=== PATIENT | female | born 2000 | race Caucasian/White ===

== ENCOUNTER 2023-02-02 12:28 | Emergency (ER) | payer BC ==
[~2023-02-02] VITALS: Ht 170 cm; Wt 104.3 kg
--- NOTE | 2023-02-02 13:31 | ED Neurological Problem ---
General Chief Complaint: Facial Problems Stated Complaint: MIGRAINE | LOSS OF FEELING IN FACE Nursing Triage Note: PT AMB TO TRIAGE WITH C/O MIGRAINE LAST NIGHT THAT MADE THE R SIDE OF HER FACE GO NUMB AND HER MOUTH HARD TO MOVE. PT STATES THE MIGRAINE IS GONE BUT HER FACE STILL FEELS NUMB TODAY Source: patient, family Exam Limitations: no limitations History of Present Illness Date Seen by Provider: Feb 02, 2023 Time Seen by Provider: 12:35 Initial Comments 22-year-old female with past medical history of migraines coming in due to a migraine headache. Started last night, and she noted this morning that the right side of her face felt numb and had difficulty moving. Headache started to improve, and the symptoms also started to improve shortly after that. Denies any trauma to her head, does not take any blood thinners, does not take any medicines daily except for ibuprofen as needed for headache. LMP was a couple weeks ago. Allergies and Home Medications Allergies Coded Allergies: amoxicillin (Verified Allergy, Unknown, 02/02/23) hydrocodone (Verified Allergy, Unknown, 02/02/23) Patient Home Medication List Home Medication List Reviewed: Yes Review of Systems Review of Systems Constitutional: No fever Eyes: No Symptoms Reported Ears, Nose, Mouth, Throat: see HPI Respiratory: no symptoms reported Cardiovascular: no symptoms reported Gastrointestinal: no symptoms reported Genitourinary: no symptoms reported Musculoskeletal: no symptoms reported Skin: no symptoms reported Psychiatric/Neurological: See HPI, Headache Endocrine: No Symptoms Reported Hematologic/Lymphatic: No Symptoms Reported Past Urcmlvp-Eetljz-Nhnejq Hx Patient Social History Tobacco Use?: No Use of E-Cig and/or Vaping dev: No Substance use?: Yes Substance type: Marijuana Alcohol Use?: No Pt feels they are or have been: No Immunizations Up To Date Influenza Vaccine Up-to-Date: Yes; Up-to-Date First/Initial COVID19 Vaccinat: X2 COVID19 Vaccine Recruitment And Outreach Assistant: RENEE Past Medical History Surgery/Hospitalization HX: MIGRAINES Last Menstrual Period: Jan 23, 2023 Physical Exam Vital Signs Vital Signs - First Documented 02/02/23 12:35 Temp 36.8 Pulse 77 Resp 14 B/P (MAP) 146/102 (117) Capillary Refill : Height, Weight, BMI Height: '" Weight: lbs. oz. kg; 36.00 BMI Method: General Appearance: WD/WN, no apparent distress HEENT: PERRL/EOMI, normal ENT inspection, pharynx normal Neck: non-tender, full range of motion, supple, normal inspection Respiratory: chest non-tender, lungs clear, normal breath sounds, no re spiratory distress, no accessory muscle use Cardiovascular: regular rate, rhythm, no edema, no murmur Gastrointestinal: normal bowel sounds, non tender, soft; No distended, No guarding, No rebound Back: normal inspection, no CVA tenderness, no vertebral tenderness Extremities: normal range of motion, non-tender, normal inspection, no pedal edema, no calf tenderness, normal capillary refill Neurologic/Psychiatric: video tape duplicator II-XII nml as tested, no motor/sensory deficits, alert, normal mood/affect, oriented x 3, other (Normal finger-nose, normal [id number], normal gait, normal tandem gait, normal visual mcmullen and visual acuity) Crainal Nerves: normal hearing, normal speech, PERRL Coordination/Gait: normal finger to nose, normal gait Motor/Sensory: no motor deficit, no sensory deficit, no pronator drift Skin: normal color, warm/dry Stroke Onset of Symptoms Date of Onset of Symptoms: Feb 02, 2023 Time of Symptom Onset: 08:00 Onset of Symptoms: Yes NIH Stroke Scale Assessment Select: Initial Level of Consciousness: 0=Alert (0), Level of Consciousness- Questions: 0=Answers both month/age (0), Gaze: Normal (0), Visual Mcmullen: 0=No visual loss (0), Facial Movement (Facial Paresis): 0=Normal symmetrical mnt (0), Motor Function-Arms Right: 0=No drift (0), Motor Function-Arms Left: 0=No drift (0), Motor Function-Legs Right: 0=No drift (0), Motor Function- Legs Left: 0=No drift (0), Limb Ataxia: 0=Absent (0), Sensory: 0=Normal:no loss (0), Best Language: 0=No aphasia (0), Dysarthria: 0=Normal (0), Extinction & Inattention: 0=No abnormality (0), Total: 0 Stroke Thrombolytic Exclusion TPA Contraindication: Yes IV - TPa Received IV - TPa Procedure Performed?: No Progress/Results/Core Measures Results/Orders Vital Signs/I&O 02/02/23 12:35 Temp 36.8 Pulse 77 Resp 14 B/P (MAP) 146/102 (117) Blood Pressure Mean: 117 Progress Progress Note : Progress Note 22-year-old female with above history coming in due to headache with some tingling to her face and reported facial droop. ABCs were intact and vitals were stable on presentation. Physical exam reassuring, and specifically comprehensive neuro exam is completely normal with an NIH of 0. I am not seeing any facial droop, she is not having any numbness. Is possible she had a complex migraine that fixed itself when her headache got better. She is not needing any medicines at this time even though they were offered. I will send her prescriptions for Compazine in case she has a headache in the future that needs help. I discussed if she has neuro findings in the future she should immediately come to the ER. She is otherwise very low risk for stroke given her age and no risk factors. Departure Impression Primary Impression: Migraine Qualified Codes: G43.809 - Other migraine, not intractable, without status migrainosus Disposition: 01 HOME, SELF-CARE Condition: Stable Departure-Patient Inst. Decision time for Depature: 13:30 Referrals: AUGIE MCLAUGHLIN APRN (PCP/Family) Primary Care Physician Patient Instructions: Migraines in Adults Add. Discharge Instructions: This is consistent with a complex migraine. When people have bad migraines, they can get symptoms similar to a stroke. Take ibuprofen and/or Tylenol as needed for headaches. If you have headaches on top of that, you can take the Compazine which was a prescription sent. Take this with 25 mg of Benadryl. This will make you very sleepy. If this does occur again, try to take a picture or video and I would still come in to the ER to be evaluated if the symptoms of neuro findings are consistent. Scripts Prochlorperazine Maleate (Compazine) 10 Mg Tablet 10 MG PO Q8H PRN for MIGRAINE for 5 Days, #15 TAB Prov: MAGO MG MD 02/02/23 Work/School Note: Family Work Note, Patient Received Medical Care In the Emergency Department On: Feb 02, 2023 Patient Will Be Able to Return to Work/School On: Feb 03, 2023 Work Release Form Date Seen in the Emergency Department: Feb 02, 2023 Return to Work: Feb 03, 2023 Restrictions: No Restrictions MAGO MG MD Feb 02, 2023 13:31
[2023-02-02] MEDS ORDERED: PROC-1 PO (13:32)
[2023-02-02 13:48] VITALS: BP 137/91
== END 2023-02-02 13:48 | disposition home or self-care (01) ==
LOC: ER 12:32
DX: G43.909 Migraine, unspecified, not intractable, without status migrainosus (principal)
CPT/HCPCS: 99281

== ENCOUNTER 2023-04-24 21:49 | Emergency (ER) | payer BC ==
[~2023-04-24] VITALS: Ht 170 cm; Wt 104.0 kg
[~2023-04-24 21:49] MED LIST: PROC-1 PO
[2023-04-24 22:02] VITALS: BP 126/85
--- NOTE | 2023-04-24 22:24 | ED General ---
General Chief Complaint: Breast Complaints Stated Complaint: BRUISE ON LEFT BREAST Source of Information: Patient Exam Limitations: No Limitations History of Present Illness Date Seen by Provider: Apr 24, 2023 Time Seen by Provider: 22:16 Initial Comments This 22-year-old young lady presents to the emergency room with complaints of a bruise on her left breast. She had been playing in a pool earlier in the day. She had been getting in and out of the pool and playing catch with a football. She believes the bruise occurred during 1 of these activities. The bruise is not painful and there is no evidence of hematoma associated with it. She also has a widespread significant sunburn throughout her face, trunk, and upper extremities. When asked about her LMP, she reports being late on her menstrual cycle with her last period being March 19. Allergies and Home Medications Allergies Coded Allergies: amoxicillin (Verified Allergy, Unknown, 02/02/23) hydrocodone (Verified Allergy, Unknown, 02/02/23) Patient Home Medication List Home Medication List Reviewed: Yes Prochlorperazine Maleate (Compazine) 10 Mg Tablet, 10 MG PO Q8H PRN for MIGRAINE Prescribed by: MAGO MG on 02/02/23 1332 Review of Systems Review of Systems Constitutional: no symptoms reported EENTM: no symptoms reported Respiratory: no symptoms reported Cardiovascular: no symptoms reported Gastrointestinal: no symptoms reported Genitourinary: no symptoms reported LMP: March 20, 2023 Musculoskeletal: no symptoms reported Skin: see HPI Psychiatric/Neurological: No Symptoms Reported Hematologic/Lymphatic: No Symptoms Reported Past Tdzwbsk-Jtgwkp-Fuovcr Hx Patient Social History Tobacco Use?: No Use of E-Cig and/or Vaping dev: No Substance use?: Yes Substance type: Marijuana Alcohol Use?: No Immunizations Up To Date First/Initial COVID19 Vaccinat: X2 Second COVID19 Vaccination Jaren: X2 Third COVID19 Vaccination Date: X2 Past Medical History Surgery/Hospitalization HX: MIGRAINES Surgeries: Yes Section Respiratory: No Cardiac: No Neurological: No Last Menstrual Period: March 19, 2023 Genitourinary: No Gastrointestinal: No Musculoskeletal: No Endocrine: No HEENT: No Cancer: No Psychosocial: No Required transfusion as a from hemorrhaging at . Physical Exam Vital Signs Vital Signs - First Documented 04/24/23 22:02 Temp 36.5 Pulse 95 Resp 20 B/P (MAP) 126/85 (99) Pulse Ox 100 O2 Delivery Room Air Capillary Refill : Height, Weight, BMI Height: '" Weight: lbs. oz. kg; 36.00 BMI Method: General Appearance: No Apparent Distress, WD/WN HEENT: PERRL/EOMI, Normal ENT Inspection Extremity: Normal Inspection Neurologic/Psychiatric: Alert, Oriented x3, No Motor/Sensory Deficits, Normal Mood/Affect Skin: Warm/Dry, Ecchymosis (Triangular shaped ecchymosis on the upper left b reast about 4 to 5 cm in length. No mass or tenderness.), Other (Extensive sunburn) Progress/Results/Core Measures Suspected Sepsis SIRS Temperature: Pulse: Respiratory Rate: Blood Pressure / Mean: Results/Orders Vital Signs/I&O 04/24/23 22:02 Temp 36.5 Pulse 95 Resp 20 B/P (MAP) 126/85 (99) Pulse Ox 100 O2 Delivery Room Air Capillary Refill : Progress Note : Progress Note Bruising on left breast seemed to be simple bruise that required not further work-up or treatment. Departure Impression Primary Impression: Bruise of breast Qualified Codes: S20.02XA - Contusion of left breast, initial encounter Additional Impressions: Burn from the sun Late menstruation Disposition: 01 HOME, SELF-CARE Condition: Stable Departure-Patient Inst. Referrals: AUGIE MCLAUGHLIN APRN (PCP/Family) Primary Care Physician Patient Instructions: Sunburn, Taking care of bruises Add. Discharge Instructions: Your breast injury seems to be a simple bruise. At this bruising may evolve over time and the discoloration may spread and change in shades of colors over the next 1 to 2 weeks. Patient then gradually fade away. Develop increasing pain, increasing redness, fullness under the skin, or other concerning changes, return to care for further evaluation. To care for your sunburn drink plenty of clear liquids to stay well-hydrated. You may take ibuprofen up to 600 mg every 6 hours as needed and/or Tylenol (acetaminophen) up to 1000 mg every 6 hours as needed. You may use [id number] after sun products to help soothe your skin or general skin moisturizers. Avoid any further direct sun exposure until your sunburn heals. Use sunscreen or other coverings in the future to avoid sunburn. If you do not start your menstrual cycle soon, take a test. Assume that you are until proven otherwise since you are late on your cycle. Avoid activities that would be dangerous to such as drinking alcohol until you are sure you are not . All discharge instructions reviewed with patient and/or family. Voiced understanding. Copy Copies To 1: [facility]VEDA CHERRY MD Apr 24, 2023 22:24
== END 2023-04-24 22:30 | disposition home or self-care (01) ==
LOC: EDUNIT# 21:49 → ER 21:52
DX: S20.02XA Contusion of left breast, initial encounter (principal); L55.9 Sunburn, unspecified; N92.6 Irregular menstruation, unspecified; X58.XXXA Exposure to other specified factors, initial encounter; Y92.89 Other specified places as the place of occurrence of the external cause; Y93.61 Activity, american tackle football
CPT/HCPCS: 99281